=== PATIENT | female | born 1985 | race Caucasian/White ===

== ENCOUNTER 2020-10-03 14:52 | Emergency (ER) | payer OTHER ==
[2020-10-03 17:37] LABS: RED BLOOD COUNT 4.63 M/UL (4.00-5.10); WHITE BLOOD COUNT 9.1 K/UL (4.5-11.0)
[2020-10-03 17:49] LABS: BUN/CREATININE RATIO 16 (0-10)
== END 2020-10-03 19:50 | disposition home or self-care (01) ==
LOC: ER1 14:52
PROVIDERS: Physician Assistant
DX: M79.661 Pain in right lower leg (principal); M79.89 Other specified soft tissue disorders; Z88.1 Allergy status to other antibiotic agents; Z88.8 Allergy status to other drugs, medicaments and biological substances
CPT/HCPCS: 80053; 85025; 93971; 99284